=== PATIENT | male | born 1995 | race Caucasian/White ===

== ENCOUNTER 2020-12-31 03:10 | Emergency (ER) | payer OTHER ==
[~2020-12-31] VITALS: Ht 200.7 cm; Wt 121.0 kg
[2020-12-31 03:11] VITALS: BP 128/86
[2020-12-31] MEDS ORDERED: PLEASE ENTER ALLERGIES MC SCH (03:30)
[2020-12-31] MEDS ORDERED: IBUPROFEN 800 MG TABLET PO ONE (03:30)
[2020-12-31] MEDS ORDERED: IBUPROFEN 800 MG TABLET ONE (03:34)
--- NOTE | 2020-12-31 03:36 | NUR ---
PT AMBULATED TO ROOM TR1, AND CHANGED TO GOWN. PA TO KAIDENAL PT, AND ORDERS RECEIVED. PT C/O PAIN TO LEFT KNEE POST FALL FROM A WALL HE WAS JUMPING OVER WHILE WORKING, PT IS RPD. PT JUMPED FENCE AND WHEN HE LANDED AND KEPT RUNNING, THE PT THEN BEGAN TO FEEL PAIN WHEN THE FOOT CARLOS WAS OVER AND THE ADRENALIN WAS DECREASING. PT HAS HISTORY OF KNEE SURGERY TO LEFT KNEE. IBUPROFEN 800MG PROVIDED PO AND PT TOOK IT. XRAY OF THE KNEE DONE, AND PT TOLERATED WELL.
--- NOTE | 2020-12-31 04:10 | NUR ---
PT AMBULATED TO THE XRAY DEPT FOR SPINAL XRAY.
--- NOTE | 2020-12-31 05:06 | NUR ---
PT RESTING COMFORTABLY, NO ACUTE DISTRESS AT THIS TIME. WAITING FOR XRAY TO BE READ.
--- NOTE | 2020-12-31 05:47 | NUR ---
PT RESTING COMFORTABLY, AND JUST WAITING ON LUMBAR XRAY TO BE READ BY RADIOLOGY.
--- NOTE | 2020-12-31 06:08 | NUR ---
MD TO BEDSIDE TO SPEAK WITH PT, AND F/U AND D/C INSTRUCTIONS GIVEN TO PT WITH PRESCRIPTIONS AND HE V/U. PT AMBULATORY TO DISCHARGE DESK.
== END 2020-12-31 06:10 | disposition home or self-care (01) ==
LOC: ED 05:50
DX: S39.012A Strain of muscle, fascia and tendon of lower back, initial encounter (principal); S83.92XA Sprain of unspecified site of left knee, initial encounter; X58.XXXA Exposure to other specified factors, initial encounter; Y93.89 Activity, other specified; Y92.69 Other specified industrial and construction area as the place of occurrence of the external cause; Y99.8 Other external cause status
CPT/HCPCS: 72110; 99284

== ENCOUNTER 2021-01-23 22:09 | Emergency (ER) | payer OTHER ==
[~2021-01-23] VITALS: Ht 200.7 cm; Wt 127.0 kg
[2021-01-23 22:19] VITALS: BP 136/88
== END 2021-01-23 23:01 | disposition home or self-care (01) ==
LOC: ED 22:47
DX: T59.3X1A Toxic effect of lacrimogenic gas, accidental (unintentional), initial encounter (principal); T26.91XA Corrosion of right eye and adnexa, part unspecified, initial encounter; Y93.89 Activity, other specified; Y92.89 Other specified places as the place of occurrence of the external cause; Y99.8 Other external cause status
CPT/HCPCS: 36415; 86705; 86706; 86803; 87340; 87806; 99283; G0475